=== PATIENT | female | born 1995 | race African-American/Black ===

== ENCOUNTER 2017-07-21 18:14 | Emergency (ER) | payer OTHER ==
[~2017-07-21] VITALS: Ht 157.5 cm; Wt 68.0 kg
[2017-07-21 18:43] LABS: URINE BLOOD NEGATIVE (Negative); URINE CLARITY SL CLOUDY; URINE COLOR YELLOW; URINE GLUCOSE-RANDOM* NEGATIVE (Negative); URINE KETONES NEGATIVE (Negative); URINE NITRITE-REFLEX NEGATIVE (Negative); URINE PROTEIN (DIPSTICK) TRACE (Negative); URINE SPECIFIC GRAVITY >= 1.030 (1.005-1.035); URINE UROBILINOGEN 0.2 E.U./dl (0.2-1.0)
[2017-07-21 18:46] LABS: URINE BILIRUBIN NEGATIVE (Negative); URINE LEUKOCYTES-REFLEX 2+ (Negative)
[2017-07-21 18:56] LABS: CRYSTALS None Seen /LPF (None Seen); MUCUS >6 Heavy strn/LPF (None Seen); SQUAMOUS >10 Many /LPF (0-3)
[2017-07-21 18:57] LABS: BACTERIA-REFLEX None Seen /HPF (None Seen); CASTS None Seen /LPF (None Seen); URINE RBC None Seen /HPF (0-2)
[2017-07-21] MEDS ORDERED: DIFLUCAN150 MG PO (19:19)
[2017-07-21 19:28] VITALS: BP 118/75
[2017-07-23 14:09] LABS: NEISSERIA GONORRHEA-PCR Negative (Negative)
== END 2017-07-21 19:29 | disposition home or self-care (01) ==
LOC: ER 18:14
PROVIDERS: Physician Assistant
DX: B37.3 Candidiasis of vulva and vagina (principal)

== ENCOUNTER 2017-08-23 14:24 | Emergency (ER) | payer OTHER ==
[~2017-08-23] VITALS: Ht 157.5 cm; Wt 70.3 kg
[~2017-08-23 14:24] MED LIST: DIFLUCAN150 MG PO
[2017-08-23 14:43] LABS: URINE BILIRUBIN NEGATIVE (Negative); URINE BLOOD TRACE (Negative); URINE COLOR YELLOW; URINE GLUCOSE-RANDOM* NEGATIVE (Negative); URINE KETONES 1+ (Negative); URINE NITRITE-REFLEX NEGATIVE (Negative); URINE PROTEIN (DIPSTICK) TRACE (Negative); URINE SPECIFIC GRAVITY 1.025 (1.005-1.035)
[2017-08-23 14:44] LABS: URINE CLARITY HAZY; URINE LEUKOCYTES-REFLEX 3+ (Negative)
[2017-08-23 14:57] LABS: CASTS None Seen /LPF (None Seen); CRYSTALS None Seen /LPF (None Seen); SQUAMOUS >10 Many /LPF (0-3); URINE RBC 3-10 Few /HPF (0-2)
[2017-08-23] MEDS ORDERED: PRENATAL PO (15:07)
[2017-08-23] MEDS ORDERED: ACYCLOVIR 400400 MG PO (15:07)
[2017-08-23 16:01] LABS: URINE BLOOD NEGATIVE (Negative); URINE CLARITY CLEAR; URINE COLOR YELLOW; URINE GLUCOSE-RANDOM* NEGATIVE (Negative); URINE KETONES NEGATIVE (Negative); URINE NITRITE-REFLEX NEGATIVE (Negative); URINE PROTEIN (DIPSTICK) TRACE (Negative)
[2017-08-23 16:03] LABS: ICTOTEST (BILI CONFIRMATORY) Negative (Negative); URINE BILIRUBIN NEGATIVE (Negative); URINE LEUKOCYTES-REFLEX 3+ (Negative)
[2017-08-23 16:12] LABS: CASTS None Seen /LPF (None Seen); CRYSTALS None Seen /LPF (None Seen); MUCUS >6 Heavy strn/LPF (None Seen); SQUAMOUS >10 Many /LPF (0-3); URINE RBC None Seen /HPF (0-2); URINE WBC-REFLEX 6-15 Few /HPF (0-5)
[2017-08-23] MEDS ORDERED: KEFLEX500 M1 PO (16:47)
[2017-08-23 16:54] VITALS: BP 93/43
[2017-08-23] MEDS ORDERED: 3-DAY VAGINAL C21 GM VAG (16:55)
[2017-08-26 14:46] LABS: NEISSERIA GONORRHEA-PCR Negative (Negative)
== END 2017-08-23 16:59 | disposition home or self-care (01) ==
LOC: ER 14:24
PROVIDERS: Physician Assistant
DX: O23.41 Unspecified infection of urinary tract in pregnancy, first trimester (principal); Z3A.01 Less than 8 weeks gestation of pregnancy; N89.8 Other specified noninflammatory disorders of vagina

== ENCOUNTER 2017-11-18 16:20 | Emergency (ER) | payer OTHER ==
[~2017-11-18] VITALS: Ht 157.5 cm; Wt 68.0 kg
[~2017-11-18 16:20] MED LIST changes: +3-DAY VAGINAL C21 GM VAG; +ACYCLOVIR 400400 MG PO; +KEFLEX500 M1 PO; +PRENATAL PO
[2017-11-18 16:43] LABS: URINE BILIRUBIN NEGATIVE (Negative); URINE BLOOD NEGATIVE (Negative); URINE CLARITY CLEAR; URINE COLOR YELLOW; URINE GLUCOSE-RANDOM* NEGATIVE (Negative); URINE KETONES TRACE (Negative); URINE NITRITE-REFLEX NEGATIVE (Negative); URINE PROTEIN (DIPSTICK) TRACE (Negative); URINE SPECIFIC GRAVITY >= 1.030 (1.005-1.035)
[2017-11-18 16:45] LABS: URINE LEUKOCYTES-REFLEX TRACE (Negative)
[2017-11-18 17:07] LABS: BACTERIA 1-9 Few /HPF (None Seen); CASTS None Seen /LPF (None Seen); CRYSTALS None Seen /LPF (None Seen); SQUAMOUS 0-3 Few /LPF (0-3); URINE RBC 0-2 Rare /HPF (0-2); URINE WBC 0-5 Rare /HPF (0-5)
[2017-11-18 17:16] VITALS: BP 106/55
[2017-11-18] MEDS ORDERED: KEFLEX500 M1 PO (18:39)
[2017-11-18] MEDS ORDERED: FLAGYL500 MG PO (18:39)
== END 2017-11-18 18:58 | disposition left against medical advice (07) ==
LOC: ER 16:20
PROVIDERS: Nurse Practitioner Family; Physician Assistant
DX: O23.42 Unspecified infection of urinary tract in pregnancy, second trimester (principal); O23.592 Infection of other part of genital tract in pregnancy, second trimester; Z3A.19 19 weeks gestation of pregnancy